=== PATIENT | female | born 1955 | race Caucasian/White ===

== ENCOUNTER 2017-01-03 10:42 | Inpatient (IN) | payer MEDICAID, OTHER ==
[~2017-01-03] VITALS: Ht 154.9 cm; Wt 43.5 kg
[2017-01-03 10:51] VITALS: BP 150/95; PULSE 84; RESP 18; TEMP 97.8; O2SAT 100
--- NOTE | 2017-01-03 10:58 | NUR ---
Patient to ER bed 01 to gown for evaluation. Side rails up. Report obtained from Nam.
--- NOTE | 2017-01-03 10:59 | NUR ---
ER at bedside examining patient.
--- NOTE | 2017-01-03 10:59 | NUR ---
Pt presents to ED with chest pressure. Reports being nauseous yesterday. Denies nausea today. Report chest pressure/pain at 8/10. Lung sounds with Coarse ronchi to ANABELLE.
--- NOTE | 2017-01-03 10:59 | NUR ---
Note undone in EDM - 01/03/17 at 1109 by BRINDA Pt presents to ED with chest pressure. Reports being nauseous yesterday. Denies nausea today. Report chest pressure/pain at 8/10. Lung sounds with Coarse ronchi to ANABELLE.
[2017-01-03] MEDS ORDERED: LEVO500T20 PO (11:10)
--- NOTE | 2017-01-03 11:12 | NUR ---
Medication reconciliation completed with information provided by patient.
--- NOTE | 2017-01-03 11:14 | NUR ---
MD notified of pain level of 8/10 verbilized understanding no order received at this time
--- NOTE | 2017-01-03 11:15 | NUR ---
Electrical Line Worker Wesley at bedside, used patient name and for identification
[2017-01-03 11:22] LABS: BASOPHILS % (AUTO) 0.3 % (0.0-2.0); EOSINOPHILS # (AUTO) 0.2 K/uL (0.0-0.4); EOSINOPHILS % (AUTO) 1.9 % (0.0-4.0); HEMATOCRIT 36.1 % (36-48); HEMOGLOBIN 12.1 g/dL (12.0-16.0); LYMPHOCYTES # (AUTO) 2.3 K/uL (1.0-5.5); LYMPHOCYTES % (AUTO) 19.4 % (20.5-51.5); MEAN CORPUSCULAR HEMOGLOBIN 32 pg (27-31); MEAN CORPUSCULAR HGB CONC 33 % (32-36); MEAN CORPUSCULAR VOLUME 94 fL (79.0-98.0); MONOCYTES # (AUTO) 1.1 K/uL (0.0-1.0); MONOCYTES % (AUTO) 9.6 % (1.7-9.3); NEUTROPHILS # (AUTO) 8.2 K/uL (1.8-7.7); NEUTROPHILS % (AUTO) 68.8 % (40.0-70.0); PLATELET COUNT (AUTO) 428 K/uL (130-430); RED BLOOD CELL COUNT(AUTO) 3.82 MIL/uL (4.2-6.2); RED CELL DISTRIBUTION WIDTH 12.4 % (9.0-15.0); WHITE BLOOD COUNT (AUTO) 11.8 K/uL (4.8-10.8)
[2017-01-03] MEDS ORDERED: IPRATROPIUM/ALBUTEROL SULFATE 3 ML AMPUL.NEB INH ONE (11:30)
[2017-01-03] MEDS ORDERED: methylPREDNISolone SOD SUCC/PF 62.5 MG/ML VIAL IVP ONE (11:30)
[2017-01-03] MEDS ORDERED: ONDANSETRON HCL 4 MG/2 ML VIAL IVP ONE (11:30)
[2017-01-03] MEDS ORDERED: MORPHINE 4 MG/ML INJ. SYRINGE IVP ONE ×2 (11:30→13:15)
[2017-01-03] MEDS ORDERED: KETOROLAC TROMETHAMINE 30 MG VIAL IVP ONE (11:30)
[2017-01-03 11:31] LABS: ALBUMIN 3.8 g/dL (3.4-4.8); CALCIUM 8.9 mg/dL (8.4-11.0); CREATININE 1.13 mg/dL (0.55-1.30); POTASSIUM 3.7 mmol/L (3.5-5.1); TOTAL BILIRUBIN 0.4 mg/dL (0.0-1.0); TOTAL PROTEIN, SERUM 7.7 g/dL (6.4-8.3)
--- NOTE | 2017-01-03 11:48 | NUR ---
Admin medication as ordered. RT at bedside admin HHN. Pt is vinicius well
[2017-01-03] MEDS ORDERED: cefTRIAXone 1 GM IVPB PREMIX 50 ML IV ONE (12:15)
--- NOTE | 2017-01-03 13:10 | NUR ---
ambulated to restroom with unassisted steady gait Urine Sample obtained and sent to lab. C/O 05/[address] Correa notified verbilized understanding
--- NOTE | 2017-01-03 13:28 | NUR ---
Medicated with Morphine IVP per Dr. Correa's order on cardiac/sao2 monitor with high alarms, bed low, brake on side rails x2 teach back fall precautions provided
--- NOTE | 2017-01-03 14:05 | NUR ---
Transfer to 129A via ACLS protocol with Kassie ROCK and Lakshmi ROCK, IV present no signs or symptoms of infiltration per Kassie
--- NOTE | 2017-01-03 14:17 | NUR ---
ADMISSION NOTE Received patient from ER via gurney. Patient admitted with diagnosis of copd. Patient is awake, alert, oriented . Patient oriented to hospital room, call light, toileting, pain management and safety-teach back done. Personal belongings checked and Belongings List documented. Call light within reach.
--- NOTE | 2017-01-03 15:00 | NUR ---
MD ROUNDS SEEN BY DR. VU. INFORMED MD THAT PT WANTS NICOTINE PATCH.
[2017-01-03] MEDS ORDERED: IPRATROPIUM/ALBUTEROL SULFATE 3 ML AMPUL.NEB INH PRN (15:15)
[2017-01-03] MEDS ORDERED: cefTRIAXone 1 GM IVPB PREMIX 50 ML IV SCH (15:15)
[2017-01-03] MEDS ORDERED: ALBUTEROL SULFATE 0.083% 2.5 MG/3 ML VIAL.NEB INH PRN (15:15)
[2017-01-03] MEDS ORDERED: IPRATROPIUM BROM 0.5 MG/2.5 ML VIAL.NEB (ATROVENT) INH PRN (15:15)
[2017-01-03] MEDS ORDERED: AZITHROMYCIN 500 MG in NS 250 ML IV SCH (15:15)
[2017-01-03] MEDS ORDERED: methylPREDNISolone SOD SUCC/PF 62.5 MG/ML VIAL IVP SCH (15:15)
[2017-01-03] MEDS ORDERED: AZITHROMYCIN 500 MG in NS 250 ML IV ONE (15:45)
[2017-01-03] MEDS ORDERED: cefTRIAXone 1 GM in D5W 50 ML IV ONE (15:45)
[2017-01-03 16:00] VITALS: BP 153/83; PULSE 72; RESP 16; TEMP 97.3; O2SAT 96
[2017-01-03 16:08] VITALS: BP 165/84; PULSE 70
--- NOTE | 2017-01-03 16:16 | NUR ---
PAGED PAGED DR. CORLEY RE: PT COMPLAINS OF PAIN ON HER CHEST. NEW ORDERS RECEIVED.
[2017-01-03] MEDS: NICOTINE 14 MG/24 HR PATCH.TD24 TD SCH (16:40)
[2017-01-03] MEDS: MORPHINE 2 MG/ML INJ. SYRINGE IVP PRN ×2 (16:47→21:54)
--- NOTE | 2017-01-03 18:44 | NUR ---
NOTES IN BED AWAKE, EATING DINNER. IV ABX STILL RUNNING AT THIS TIME. PAIN BETTER AFTER GIVING MORPHINE. NO DISTRESS NOTED. WILL ENDORSE
[2017-01-03] MEDS ORDERED: ALBUTEROL SULFATE 0.083% 2.5 MG/3 ML VIAL.NEB INH SCH (19:00)
[2017-01-03] MEDS ORDERED: IPRATROPIUM BROM 0.5 MG/2.5 ML VIAL.NEB (ATROVENT) INH SCH (19:00)
[2017-01-03] MEDS: IPRATROPIUM/ALBUTEROL SULFATE 3 ML AMPUL.NEB INH SCH ×2 (19:00→23:00)
--- NOTE | 2017-01-03 20:03 | NUR ---
Opening Note Report received from Marybel Brown day shift RN. Patient is in stable condition. However, she states that she has chest pain that is somewhat relieved by pain medication. Her cardiac work up was negative. IV is on the LAC, 20g. She states that her IV is painful. Will discontinue current IV and will insert a new one. She is on room air saturating 100%. Will continue to monitor.
[2017-01-03] MEDS: guaiFENesin ER 600 MG TAB PO SCH (21:50)
[2017-01-03] MEDS: methylPREDNISolone SOD SUCC/PF 62.5 MG/ML VIAL IVP SCH (21:54)
--- NOTE | 2017-01-03 22:00 | NUR ---
Rounds New IV site was started on the right FA 22g. Patient tolerated well. Medicated with Morphine 2mg IVP for chest pain 03/25. Will reassess.
[2017-01-04] VITALS (7 sets, daily range): BP systolic 106–162; BP diastolic 59–98; PULSE 66–100; RESP 15–18; TEMP 97.6–99.4; O2SAT 95–99
[2017-01-04] MEDS ORDERED: IPRATROPIUM BROM 0.5 MG/2.5 ML VIAL.NEB (ATROVENT) INH SCH
--- NOTE | 2017-01-04 00:05 | NUR ---
PAGED PAGED SUNI DUBOIS AT [phone] SPOKE WITH ILEANA.
--- NOTE | 2017-01-04 00:06 | NUR ---
MD Called Called Dr. Frederick. Patient is requesting a sleeping medication. Currently waiting for MD to call back.
--- NOTE | 2017-01-04 00:32 | NUR ---
Rounds Patient is in stable condition. However, seems anxious. Still waiting for Dr. Frederick to call back to order a sleeping medication. Call light is within reach. Bed is in low position. Instructed patient to use call light whenever in need of assistance.
--- NOTE | 2017-01-04 02:30 | NUR ---
Rounds Patient is currently sleeping in bed. No signs of distress noted. Call light is within reach.
[2017-01-04] MEDS: IPRATROPIUM/ALBUTEROL SULFATE 3 ML AMPUL.NEB INH SCH ×3 (03:56→11:30)
--- NOTE | 2017-01-04 04:19 | NUR ---
Rounds Patient is sleeping in bed. No signs of distress noted. Call light is within reach.
[2017-01-04] MEDS: MORPHINE 2 MG/ML INJ. SYRINGE IVP PRN ×4 (05:19→19:53)
[2017-01-04] MEDS: methylPREDNISolone SOD SUCC/PF 62.5 MG/ML VIAL IVP SCH ×3 (05:20→22:33)
--- NOTE | 2017-01-04 06:50 | NUR ---
Closing Note Patient is in stable condition. Currently sleeping in bed. Call light is within reach. IV is on the RFA 22g running at [facility]. Will give report to the oncoming nurse.
--- NOTE | 2017-01-04 08:00 | NUR ---
NOTE PT RESTING IN BED EATING HER BREAKFAST. NO SOB/RESP DISTRESS. PT HAS SOME CHEST PAIN/DISCOMFORT NOTED AT THIS TIME. IV IN RIGHT FOREARM INTACT AND INFUSING IVF'S WELL AT THIS TIME. TELE UNIT ATTACHED AND TRANSMITTING AT THIS TIME. CALL LIGHT WITHIN REACH.
[2017-01-04] MEDS: cefTRIAXone 1 GM in D5W 50 ML IV SCH (09:07)
[2017-01-04] MEDS: guaiFENesin ER 600 MG TAB PO SCH ×2 (09:07→22:33)
[2017-01-04] MEDS: NICOTINE 14 MG/24 HR PATCH.TD24 TD SCH (09:07)
[2017-01-04] MEDS: AZITHROMYCIN 500 MG in NS 250 ML IV SCH (09:07)
--- NOTE | 2017-01-04 10:00 | NUR ---
NOTE PT RESTING IN BED. NO NEEDS NOTED. PT STABLE. CALL LIGHT WITHIN REACH.
--- NOTE | 2017-01-04 11:15 | NUR ---
NOTE DR CORLEY ON THE FLOOR. PT'S QUESTIONS/CONCERNS WERE ANSWERED AT THIS TIME. PT AMBULATES TO RESTROOM WITH IV POLE AND WITH STEADY GAIT AT THIS TIME. NO SOB/RESP DISTRESS NOTED DURING AMBULATION TO RESTROOM AND BACK TO BED. CALL LIGHT WITHIN REACH.
[2017-01-04] MEDS ORDERED: IOHEXOL 350 mgI/mL, 150 ML INFUS..BTL IV ONE (11:44)
--- NOTE | 2017-01-04 11:58 | NUR ---
NOTE PT OFF THE FLOOR VIA WHEELCHAIR TO CT DEPT FOR CT OF CHEST WITH CONTRACT. IVF'S WERE SALINE LOCKED AT THIS TIME.
--- NOTE | 2017-01-04 12:15 | NUR ---
NOTE PT BACK TO FLOOR - IVF'S WERE RECONNECTED AT THIS TIME. PT ASSISTED IN SITTING UP IN BED TO EAT HER LUNCH TRAY AT THIS TIME. NO NEEDS NOTED. NO SOB/RESP DISTRESS OR SEVERE CHEST PAIN/DISCOMFORT NOTED. CALL LIGHT WITHIN REACH.
--- NOTE | 2017-01-04 14:50 | NUR ---
note pt resting in bed. no needs noted at this time. ivf's infusing well at this time. pain tolerable at this time. call light within reach.
--- NOTE | 2017-01-04 16:00 | NUR ---
NOTE PT SITTING UP IN BED, HAS VISITORS AT BEDSIDE AT THIS TIME. NO NEEDS NOTED. CALL LIGHT WITHIN REACH.
--- NOTE | 2017-01-04 18:55 | NUR ---
NOTE PT RESTING IN BED. NO SOB/RESP DISTRESS. LEFT CHEST WALL HAS SOME DISCOMFORT AT THIS TIME. PT GETS HER BREATHING TREATMENTS SCHEDULED AND REQUESTED ALL SHIFT. IV IN RIGHT HAND INTACT AND INFUSING IVF'S WELL. PT'S TELE UNIT ATTACHED AND TRANSMITTING. PT WAS CHECKED ON Q1' AND PRN ALL SHIFT FOR NEEDS AND CARE. PT WAS MAINTAINED WITH SAFETY PRECAUTIONS ALL SHIFT. CALL LIGHT WITHIN REACH. NO NEEDS NOTED AT THIS TIME.
[2017-01-04] MEDS: LevALBUTEROL HCL 1.25 MG/0.5 ML *CONC.* VIAL.NEB (XOPENEX CONC.) INH SCH (19:51)
[2017-01-04] MEDS: IPRATROPIUM BROM 0.5 MG/2.5 ML VIAL.NEB (ATROVENT) INH SCH (19:51)
--- NOTE | 2017-01-04 20:02 | NUR ---
Opening Note Report received from Shala ROCK. Patient is in stable condition. However was complaining of 8/10 headache. Medicated her accordingly. IV is on the RFA 22g currently at [facility]. Patient is saturating well at room air. Call light is within reach. Instructed her to use it whenever in need of assistance. Will continue to monitor.
--- NOTE | 2017-01-04 21:00 | NUR ---
MD Rounds Dr. Dunn assessed the patient at the bedside. Order Depacon and Benadryl IV push. Will follow up.
--- NOTE | 2017-01-04 21:46 | NUR ---
PAGE DR SCHULTE FOR ORDERS SPOKE WITH BRINDA
[2017-01-04] MEDS ORDERED: HYDROmorphone 1 MG INJ. 1 MG/ML AMPUL IVP ONE (22:00)
--- NOTE | 2017-01-04 22:00 | NUR ---
Spoke with Spoke with Dr. Todd who is teamcenter consultant for Dr. Frederick. Patient ordered Dilaudid 1mg one time dose for 05/26 headache.
--- NOTE | 2017-01-05 00:10 | NUR ---
Rounds Patient is resting in bed. Call light is within reach.
[2017-01-05] MEDS: LevALBUTEROL HCL 1.25 MG/0.5 ML *CONC.* VIAL.NEB (XOPENEX CONC.) INH SCH ×4 (00:20→20:27)
[2017-01-05] MEDS: IPRATROPIUM BROM 0.5 MG/2.5 ML VIAL.NEB (ATROVENT) INH SCH ×4 (00:21→20:27)
--- NOTE | 2017-01-05 02:20 | NUR ---
Rounds Patient is resting in bed. No complaints at the moment. Call light is within reach.
[2017-01-05 04:12] VITALS: BP 124/68; PULSE 80; RESP 18; TEMP 97.2; O2SAT 97
--- NOTE | 2017-01-05 04:20 | NUR ---
paged paged for Dr Todd, dialed . s/w Kaci.
--- NOTE | 2017-01-05 04:30 | NUR ---
Rounds Patient is currently sleeping in bed. Call light is within reach.
[2017-01-05] MEDS: methylPREDNISolone SOD SUCC/PF 62.5 MG/ML VIAL IVP SCH ×3 (05:13→22:12)
[2017-01-05] MEDS ORDERED: HYDROmorphone 1 MG INJ. 1 MG/ML AMPUL IVP ONE (05:45)
--- NOTE | 2017-01-05 05:46 | NUR ---
Spoke with Spoke with Dr. Todd regarding the patient's 06/25 headache and vomiting. MD ordered a stat CT of the head, Dilaudid 1mg one time dose, and Zofran 4mg IVP q4h. CT was called and informed of the stat order. information technology director stated that he had several ER patients to see first and mostly likely will not be able to scan the patient until after 0700. Will follow up.
[2017-01-05] MEDS: ONDANSETRON HCL 4 MG/2 ML VIAL IVP PRN ×2 (06:17→12:24)
--- NOTE | 2017-01-05 06:50 | NUR ---
Rounds Patient is resting in bed. Stated having 3/10 headache after receiving her pain medication. IV is on the RFA running NS@[facility]. CT of the head is still pending. Will give report to the oncoming nurse.
[2017-01-05 08:00] VITALS: BP 156/97; PULSE 88; RESP 18; TEMP 97.2; O2SAT 97
--- NOTE | 2017-01-05 08:00 | NUR ---
PATIENT IS A/OX4, AND IS GOING TO CT OF THE HEAD. IV ON THE LEFT FOREARM IS DISCONNECTED. ABLE TO AMBULATE WITH ASSISTANCE, NO SIGNS OF DISTRESS NOTED.
[2017-01-05] MEDS: AZITHROMYCIN 500 MG in NS 250 ML IV SCH (08:48)
[2017-01-05] MEDS: NICOTINE 14 MG/24 HR PATCH.TD24 TD SCH (08:48)
[2017-01-05] MEDS: cefTRIAXone 1 GM in D5W 50 ML IV SCH (08:48)
[2017-01-05] MEDS: guaiFENesin ER 600 MG TAB PO SCH ×2 (08:48→20:24)
--- NOTE | 2017-01-05 09:45 | NUR ---
PATIENT IS RESTING, SR ON MONITOR. NO SIGNS OF DISTRESS NOTED.
[2017-01-05] MEDS ORDERED: ACETAMINOPHEN 325 MG TABLET PO PRN (11:45)
[2017-01-05] MEDS ORDERED: HYDROcodone/ACETAMIN 10-325 MG TAB PO PRN (11:45)
--- NOTE | 2017-01-05 12:05 | NUR ---
PATIENT IS CRYING IN PAIN. DR. FRANKLIN IS NOTIFIED AND ORDERS WERE GIVEN. WILL BE CARRIED OUT.
[2017-01-05 12:10] VITALS: BP 141/64; PULSE 64; RESP 16; TEMP 97.5; O2SAT 96
[2017-01-05] MEDS: MORPHINE 2 MG/ML INJ. SYRINGE IVP PRN ×4 (12:25→22:13)
--- NOTE | 2017-01-05 14:15 | NUR ---
PATIENT IS WATCHING TV, STATES THAT SHE STILL HAS PAIN, BUT REFUSES TYLENOL AND NORCO.
[2017-01-05 16:18] VITALS: BP 129/68; PULSE 72; RESP 19; TEMP 98.6; O2SAT 98
--- NOTE | 2017-01-05 16:20 | NUR ---
PATIENT IS RESTING AT THIS TIME, NO SIGNS OF DISTRESS NOTED.
--- NOTE | 2017-01-05 18:15 | NUR ---
PATIENT IS EATING DINNER, WITH FRIENDS AND FAMILY MEMBERS AT BEDSIDE.
[2017-01-05 20:09] VITALS: BP 147/71; PULSE 69; RESP 17; TEMP 98.2; O2SAT 98
--- NOTE | 2017-01-05 20:11 | NUR ---
OPENING NOTES PATIENT IS A/OX4. NO SINGS OF DISTRESS. BREATHING IS NON LABORED. VITAL SIGNS ARE STABLE. PATIENT HAS COMPLAINTS OF PAIN. PATIENT STATED THAT SHE WANTS DILAUDID. SPOKE TO DR. FRANKLIN. STATED THAT DILAUDID WILL DECREASE THE RESPIRATORY SYSTEM. INFORMED PATIENT OF THIS. PATIENT VERBALIZED UNDERSTANDING. IV IS PATENT AND SHOWS NO SIGNS OF COMPLICATIONS. PATIENT INSTRUCTED TO CALL FOR ASSISTANCE. SAFETY MEASURES ARE IN PLACE. WILL CONTINUE TO MONITOR.
--- NOTE | 2017-01-05 20:24 | NUR ---
MORPHINE NOT GIVEN 2MG OF MORPHINE NOT GIVEN. WHEN IV SITE WAS FLUSHED, SITE BECAME INFILTRATED. WILL TRY TO INSERT NEW IV.
--- NOTE | 2017-01-05 21:46 | NUR ---
NEW IV SITE NEW IV SITE ON THE RIGHT FOREARM 22G WAS INSERTED. PATIENT TOLERATED IT WELL.
--- NOTE | 2017-01-05 22:25 | NUR ---
PAIN PATIENT HAD COMPLAINTS OF PAIN. GAVE PRN PAIN MEDICATION.
[2017-01-06] VITALS (7 sets, daily range): BP systolic 118–148; BP diastolic 60–66; PULSE 55–88; RESP 16–18; TEMP 97–98.9; O2SAT 96–97
--- NOTE | 2017-01-06 00:50 | NUR ---
ROUNDS PATIENT IS IN BED SLEEPING. NO SIGNS OF DISTRESS. BREATHING IS NON LABORED. PATIENT IS WEARING SLEEPING MASK. SAFETY MEASURES ARE IN PLACE. WILL CONTINUE TO MONITOR.
[2017-01-06] MEDS: LevALBUTEROL HCL 1.25 MG/0.5 ML *CONC.* VIAL.NEB (XOPENEX CONC.) INH SCH ×4 (01:00→19:29)
--- NOTE | 2017-01-06 01:53 | NUR ---
ROUNDS PATIENT WAS GIVEN APPLESAUCE. PATIENT IS SITTING UP IN BED ON CELL PHONE. NO SIGNS OF DISTRESS. BREATHING IS NON LABORED. SAFETY MEASURES ARE IN PLACE. WILL CONTINUE TO MONITOR.
[2017-01-06] MEDS: MORPHINE 2 MG/ML INJ. SYRINGE IVP PRN ×4 (03:49→21:10)
--- NOTE | 2017-01-06 03:50 | NUR ---
PAIN PATIENT HAS MIDEPIGASTRIC PAIN AND HEADACHE. WILL GIVE PRN PAIN MEDICATION.
[2017-01-06] MEDS: methylPREDNISolone SOD SUCC/PF 62.5 MG/ML VIAL IVP SCH ×2 (05:18→21:08)
--- NOTE | 2017-01-06 05:33 | NUR ---
ROUNDS PATIENT WALKED TO THE RESTROOM AND BACK INTO BED. GAIT IS STEADY. PATIENT IS SITTING UP IN BED WATCHING TV. NO COMPLAINTS OF PAIN. LAB IS AT BEDSIDE. CALL LIGHT IS WITHIN REACH. SAFETY MEASURES ARE IN PLACE. WILL CONTINUE TO MONITOR.
--- NOTE | 2017-01-06 05:40 | NUR ---
PATIENT WAS GIVEN SLIPPERS.
[2017-01-06] MEDS: IPRATROPIUM BROM 0.5 MG/2.5 ML VIAL.NEB (ATROVENT) INH SCH ×4 (06:00→19:29)
[2017-01-06 06:12] LABS: BASOPHILS # (AUTO) 0.2 K/uL (0.0-0.2); BASOPHILS % (AUTO) 1.3 % (0.0-2.0); EOSINOPHILS % (AUTO) 0.1 % (0.0-4.0); HEMATOCRIT 30.2 % (36-48); HEMOGLOBIN 10.3 g/dL (12.0-16.0); LYMPHOCYTES # (AUTO) 1.1 K/uL (1.0-5.5); LYMPHOCYTES % (AUTO) 6.5 % (20.5-51.5); MEAN CORPUSCULAR HEMOGLOBIN 32 pg (27-31); MEAN CORPUSCULAR HGB CONC 34 % (32-36); MEAN CORPUSCULAR VOLUME 94 fL (79.0-98.0); MONOCYTES # (AUTO) 0.6 K/uL (0.0-1.0); MONOCYTES % (AUTO) 3.9 % (1.7-9.3); NEUTROPHILS # (AUTO) 14.5 K/uL (1.8-7.7); PLATELET COUNT (AUTO) 351 K/uL (130-430); RED CELL DISTRIBUTION WIDTH 12.8 % (9.0-15.0); WHITE BLOOD COUNT (AUTO) 16.4 K/uL (4.8-10.8)
--- NOTE | 2017-01-06 06:30 | NUR ---
CLOSING NOTES PATIENT IS IN BED RESTING COMFORTABLY AND WATCHING TV. NO SIGNS OF DISTRESS. BREATHING IS NON LABORED. IV IS PATENT AND SHOWS NO SIGNS OF COMPLICATIONS. PATIENT DENIES PAIN. CALL LIGHT IS WITHIN REACH. SAFETY MEASURES ARE IN PLACE. WILL ENDORSE ALL CARE TO THE MORNING NURSE.
[2017-01-06 06:44] LABS: CALCIUM 8.4 mg/dL (8.4-11.0); CREATININE 1.11 mg/dL (0.55-1.30); POTASSIUM 4.7 mmol/L (3.5-5.1)
--- NOTE | 2017-01-06 07:44 | NUR ---
INITIAL NOTE RECEIVED PATIENT FROM RECEPTION CLERK NURSE, PATIENT IS ALERT AND ORIENTED X 4, NO SIGNS OF DISTRESS NOTED, PATIENT HAS NO COMPLAINTS OF PAIN OR DISCOMFORT, ASSESSMENT COMPLETE, PATIENT HAS IV ON RIGHT FOREARM, SALINE LOCK, NO SIGNS OF REDNESS NOTED, INSTRUCTED PATIENT TO USE CALL HAHN IF ASSISTANCE IS NEEDED, PATIENT VERBALIZED UNDERSTANDING, BED LEFT IN LOWEST POSITION, BED ALARM ON, CALL HAHN WITHIN PATIENT'S REACH, TWO SIDE RAILS UP FOR PATIENT'S SAFETY, FALL PRECAUTIONS IN PLACE, WILL CONTINUE TO MONITOR PATIENT.
[2017-01-06 08:57] LABS: NEUTROPHILS % (AUTO) 88.2 % (40.0-70.0)
--- NOTE | 2017-01-06 09:00 | NUR ---
MEDICATIONS MORNING MEDICATIONS GIVEN TO PATIENT, EDUCATED PATIENT ON POTENTIAL SIDE EFFECTS OF MEDICATIONS, PATIENT VERBALIZED UNDERSTANDING, NICOTINE PATCHED PLACED ON PATIENT'S LEFT UPPER ARM, , NO OTHER NEEDS AT THIS TIME, WILL CONTINUE TO MONITOR, CALL HAHN LEFT IN PATIENT'S HAND, FALL PRECAUTIONS IN PLACE.
[2017-01-06] MEDS: guaiFENesin ER 600 MG TAB PO SCH ×2 (09:02→21:09)
[2017-01-06] MEDS: NICOTINE 14 MG/24 HR PATCH.TD24 TD SCH (09:02)
[2017-01-06] MEDS: cefTRIAXone 1 GM in D5W 50 ML IV SCH (09:03)
--- NOTE | 2017-01-06 10:19 | NUR ---
RN ROUNDS PATIENT IS CURRENTLY RESTING IN BED, NO SIGNS OF DISTRESS NOTED, PATIENT HAS NO COMPLAINTS OF PAIN AT THIS TIME, WILL CONTINUE TO MONITOR PATIENT.
[2017-01-06] MEDS: ONDANSETRON HCL 4 MG/2 ML VIAL IVP PRN (11:32)
--- NOTE | 2017-01-06 11:58 | NUR ---
NEURO CONSULT Spoke with Madelin regarding request for consultation with Dr. Dunn ([phone]) for reason:
--- NOTE | 2017-01-06 12:18 | NUR ---
RN ROUNDS PATIENT IS CURRENTLY LYING IN BED WATCHING TV, NO SIGNS OF DISTRESS NOTED, NO OTHER NEEDS AT THIS TIME WILL CONTINUE TO MONITOR
--- NOTE | 2017-01-06 14:43 | NUR ---
RN ROUNDS PATIENT IS CURRENTLY RESTING IN BED,PATIENT HAS NO COMPLAINTS OF PAIN OR DISCOMFORT AT THIS TIME, WILL CONTINUE TO MONITOR
--- NOTE | 2017-01-06 17:00 | NUR ---
rn rounds patient is resting in bed, no signs of distress noted, patient states that her pain is improving, no other needs at this time, will continue to monitor.
--- NOTE | 2017-01-06 18:32 | NUR ---
CLOSING NOTE PATIENT IS CURRENTLY RESTING IN BED, FRIENDS IS CURRENTLY AT BEDSIDE, PATIENT HAS NO COMPLAINTS OF PAIN OR DISCOMFORT, NO SIGNS OF DISTRESS, ALL NEEDS MET, WILL ENDORSE PATIENT TO TRAINING MANAGER NURSE, WILL INFORM NURSE ABOUT PATIENT'S MRI OF BRAIN THAT IS SCHEDULED FOR TOMORROW, BED LEFT IN LOWEST POSITION, CALL HAHN WITHIN REACH, TWO SIDE RAILS UP, FALL PRECAUTIONS IN PLACE.
--- NOTE | 2017-01-06 20:06 | NUR ---
opening Note Report received from Aaron ROCK. Patient is in stable condition. Currently sitting in bed. Friend is at the bedside. IV is on the RFA 22g currently saline locked. Spoke with Dr. Salcedo. The patient is requesting Dilaudid for headache instead of Morphine. stated that Dilaudid is contraindicated for d/t the brain tumor. Will explain to the patient and will continue to monitor.
[2017-01-06] MEDS ORDERED: methylPREDNISolone SOD SUCC/PF 62.5 MG/ML VIAL IVP SCH (21:00)
--- NOTE | 2017-01-06 22:30 | NUR ---
IV inserted Old IV site was leaking. Started new IV site 24g on the left thumb using aseptic technique.
[2017-01-06] MEDS ORDERED: VALPROATE SODIUM 500 MG in D5W 100 ML IV ONE (23:00)
[2017-01-06] MEDS ORDERED: DIPHENHYDRAMINE INJ 50 MG/ML VIAL IVP ONE (23:15)
[2017-01-06] MEDS ORDERED: VALPROATE SODIUM 100 MG/ML VIAL (DEPACON) IV ONE (23:28)
--- NOTE | 2017-01-07 00:10 | NUR ---
Rounds Patient is currently resting in bed. Call light is within. Bed is low position.
[2017-01-07 00:23] VITALS: BP 138/70; PULSE 64; RESP 18; TEMP 97.5; O2SAT 96
[2017-01-07] MEDS: LevALBUTEROL HCL 1.25 MG/0.5 ML *CONC.* VIAL.NEB (XOPENEX CONC.) INH SCH ×4 (01:15→21:01)
[2017-01-07] MEDS: IPRATROPIUM BROM 0.5 MG/2.5 ML VIAL.NEB (ATROVENT) INH SCH ×4 (01:15→21:00)
--- NOTE | 2017-01-07 02:20 | NUR ---
Rounds Patient is resting in bed. Call light is within reach.
[2017-01-07] MEDS: MORPHINE 2 MG/ML INJ. SYRINGE IVP PRN ×4 (03:28→20:51)
[2017-01-07 03:30] VITALS: BP 127/51; PULSE 65; RESP 18; TEMP 96.6; O2SAT 98
--- NOTE | 2017-01-07 04:00 | NUR ---
Rounds Patient is resting in bed. Call light is within reach.
[2017-01-07] MEDS ORDERED: VALPROATE SODIUM 100 MG/ML VIAL (DEPACON) IV ONE (05:59)
[2017-01-07] MEDS ORDERED: VALPROATE SODIUM 500 MG in D5W 100 ML IV SCH (06:00)
--- NOTE | 2017-01-07 06:30 | NUR ---
Closing Note Patient is resting in bed. Currently getting Depacon IVPB. MRI of the head is due for today. Will give report to the oncoming nurse.
--- NOTE | 2017-01-07 08:01 | NUR ---
INITIAL NOTE PT AWAKE, ALERT AND ORIENTED X4, COMPLAINS OF HEADACHE, PER REPORT AND PATIENT MD IS AWARE AND STATED HE WILL NOT INCREASE PAIN MEDICATION DUE TO PREVIOUS HX OF PATIENT WITH HER CONDITION AND RISK OF DECREASED RESPIRATIONS, PATIENT AWARE THAT RN WILL DO WHAT IS WITHIN SCOPE OF PRACTICE TO ALLEVIATE PAIN AND STRESS, PT VERBALIZED UNDERSTANDING. IV TO LEFT THUMB INTACT AND INFUSING DEPACON AT THIS TIME, NO S/S OF INFILTRATION NOTED, PT REORIENTED TO USE OF CALL LIGHT AND IT IS PLACED WITHIN REACH, SAFETY MEASURES IN PLACE, BED IN LOW POSITION AND LOCKED, SIDE RAILS UP X2, JUST FINISHED BREATHING TREATMENT, WILL CONTINUE TO MONITOR.
[2017-01-07 08:10] VITALS: BP 134/53; PULSE 58; RESP 17; TEMP 97.4; O2SAT 100
[2017-01-07] MEDS: guaiFENesin ER 600 MG TAB PO SCH ×2 (08:33→20:50)
[2017-01-07] MEDS: cefTRIAXone 1 GM in D5W 50 ML IV SCH (08:33)
[2017-01-07] MEDS: ONDANSETRON HCL 4 MG/2 ML VIAL IVP PRN ×3 (08:33→20:50)
[2017-01-07] MEDS: ASPIRIN 81 MG TAB.CHEW PO SCH (08:33)
[2017-01-07] MEDS: methylPREDNISolone SOD SUCC/PF 62.5 MG/ML VIAL IVP SCH ×2 (08:33→20:50)
[2017-01-07] MEDS: NICOTINE 14 MG/24 HR PATCH.TD24 TD SCH (08:34)
--- NOTE | 2017-01-07 09:15 | NUR ---
PT PICKED UP FOR MRI WITHOUT CONTRAST VIA WHEELCHAIR, STABLE, NO S/S OF DISTRESS, IV SL, WILL FOLLOW UP
--- NOTE | 2017-01-07 10:15 | NUR ---
PT RETURNED FROM PROCEDURE, DR VU AT BEDSIDE. NO NEW ORDERS RECEIVED AT THIS TIME. PT STABLE, CALL LIGHT WITHIN REACH,SAFETY MEASURES IN PLACE, WILL CONTINUE TO MONITOR
--- NOTE | 2017-01-07 10:45 | NUR ---
DR CORLEY AT BEDSIDE, SPOKE WITH PATIENT REGARDING RESULTS TO MRI, PT VERBALIZED UNDERSTANDING. MADE MD AWARE OF PT CRYING OVER NIGHT ABOUT HEADACHE PER REPORT AND MORNING ROUNDS, SINCE CHANGE OF SHIFT PT HAS NOT COMPLAINED OF INTOLERABLE HEADACHE, NEW ORDER RECEIVED FOR PSYCH CONSULT POSSIBLE DEPRESSION.
--- NOTE | 2017-01-07 11:56 | NUR ---
CONSULT CALLED CONSULTATION FOR DEPRESSION. SPOKE WITH WILLIE. FAXED OVER FACE SHEET
[2017-01-07 12:04] VITALS: BP 149/74; PULSE 69; RESP 16; TEMP 98.4; O2SAT 98
--- NOTE | 2017-01-07 12:31 | NUR ---
ROUNDS PT AWAKE, NO S/S OF DISTRESS, PT DENIES PAIN AT THIS TIME, DIETITIAN AT BEDSIDE, PT STATES SHE HAS NO NEEDS AT THIS TIME, SAFETY MEASURES IN PLACE, CALL LIGHT WITHIN EACH, WILL CONTINUE TO MONITOR.
--- NOTE | 2017-01-07 13:00 | NUR ---
PHARMACY CALLED FOR IV MEDICATION DEPACON PER PHARMACIST, THEY ARE MIXING THE MEDICATIONS AND WILL SEND TO FLOOR SOON. WILL FOLLOW UP
[2017-01-07 13:46] VITALS: Ht 154.9 cm; Wt 43.5 kg
[2017-01-07] MEDS: VALPROATE SODIUM 500 MG in D5W 100 ML IV SCH ×3 (14:00→23:05)
--- NOTE | 2017-01-07 14:30 | NUR ---
FOLLOWED UP ON DEPACON IV FLUID, PER PHARMACISTS ORDER WAS WRITTEN WRONG AND HE CANNOT SEE ORDER BECAUSE ORDER WAS WRITTEN TO BE MIXED BY NURSE BUT SHOULD BE MIXED BY PHARMACISTS PER PHARMACIST HE WILL MIX AND SEND SOON POSSIBLE
--- NOTE | 2017-01-07 16:10 | NUR ---
PHARMACIST DELIVERED DEPACON AND MEDICATION INFUSING AT THIS TIME, IV SITE PATENT, NO S/S OF INFILTRATION, WILL CONTINUE TO MONITOR
[2017-01-07 16:21] VITALS: BP 138/74; PULSE 74; RESP 17; TEMP 97; O2SAT 97
--- NOTE | 2017-01-07 18:15 | NUR ---
ROUNDS PT RESTING, EASY TO AROUSE, NO S/S OF DISTRESS OR COMPLAINT OF PAIN, PT STATES SHE HAS NO NEEDS AT THIS TIME, SAFETY MEASURES IN PLACE, CALL LIGHT WITHIN REACH, WILL CONTINUE TO MONITOR
--- NOTE | 2017-01-07 19:14 | NUR ---
OPENING NOTES REPORT GIVEN AT BEDSIDE BY DAY SHIFT NURSE. PATIENT IS ALERT AND ORIENTED X4. NO S/S OF ACUTE DISTRESS NOTED. IV PATENT AND RUNNING TKO. BED IN LOWEST POSITION, CALL LIGHT WITHIN REACH. WILL CONTINUE TO MONITOR.
--- NOTE | 2017-01-07 19:26 | NUR ---
CLOSING NOTE PT AWAKE, ALERT AND ORIENTED X4, NO S/S OF DISTRESS OR COMPLAINT OF PAIN, PT DID NOT COMPLAIN OF INTENSE HEADACHE AND NO EPISODES OF INCONSOLABLE CRYING DURING SHIFT. IV TO LEFT THUMB INFUSING FLUIDS TKO, SITE PATENT AND INTACT, NO S/S OF INFILTRATION NOTED, ALL NEEDS ATTENDED TO THROUGHOUT SHIFT, SAFETY MEASURES IN PLACE, BED IN LOW POSITION AND LOCKED, CALL LIGHT WITHIN REACH, REPORT GIVEN AT BEDSIDE TO NIEVES ROCK.
[2017-01-07 19:44] VITALS: BP 151/80; PULSE 70; RESP 16; TEMP 98.1; O2SAT 98
[2017-01-07] MEDS ORDERED: DIPHENHYDRAMINE INJ 50 MG/ML VIAL IVP SCH ×2 (21:00)
--- NOTE | 2017-01-07 23:09 | NUR ---
ROUNDS PATIENT IS SITTING UP IN BED WATCHING TELEVISION IN GOOD SPIRITS. NO S/S OF ACUTE DISTRESS NOTED. FLUIDS INFUSING, IV SHOW NO SIGNS OF INFILTRATION. BED IN LOWEST POSITION, CALL LIGHT WITHIN REACH. WILL CONTINUE TO MONITOR.
[2017-01-08] VITALS: BP 151/82; PULSE 66; RESP 18; TEMP 98.5; O2SAT 98
[2017-01-08] MEDS: LevALBUTEROL HCL 1.25 MG/0.5 ML *CONC.* VIAL.NEB (XOPENEX CONC.) INH SCH ×4 (00:42→19:52)
[2017-01-08] MEDS: IPRATROPIUM BROM 0.5 MG/2.5 ML VIAL.NEB (ATROVENT) INH SCH ×4 (00:42→19:52)
[2017-01-08] MEDS: MORPHINE 2 MG/ML INJ. SYRINGE IVP PRN ×5 (00:57→20:28)
--- NOTE | 2017-01-08 01:01 | NUR ---
PAIN PATIENT COMPLAINED OF PAIN 7/10, GENERALIZED. PATIENT MEDICATED PER ORDERS. WILL REASSESS SHORTLY. PATIENT IN SEMI-GARCÍA'S, WATCHING TELEVISION AND TALKATIVE WITH NO S/S OF ACUTE DISTRESS NOTED. BED IN LOWEST POSITION, CALL LIGHT WITHIN REACH.
--- NOTE | 2017-01-08 02:04 | NUR ---
ROUNDS PATIENT SITTING UP IN BED SLEEPING. NO S/S OF ACUTE DISTRESS NOTED. VISIBLE RISE AND FALL OF CHEST WITH AUDIBLE SNORING. RESPIRATIONS EVEN AND UNLABORED. BED IN LOWEST POSITION, CALL LIGHT WITHIN REACH. WILL CONTINUE TO MONITOR.
--- NOTE | 2017-01-08 03:49 | NUR ---
ROUNDS PATIENT SLEEPING WITH VISIBLE RISE AND FALL OF CHEST NOTED. NO S/S OF DISTRESS. BED IN LOWEST POSITION WILL CONTINUE TO MONITOR. CALL LIGHT IN LEFT HAND.
[2017-01-08 04:00] VITALS: BP 131/58; PULSE 52; RESP 16; TEMP 98.6; O2SAT 97
--- NOTE | 2017-01-08 05:44 | NUR ---
PAIN PATIENT CALLED COMPLAINING OF PAIN 04/25. WILL MEDICATE PER ORDERS.
--- NOTE | 2017-01-08 05:59 | NUR ---
CRYING PATIENT IS VISIBLY DISTRESSED, CRYING LOUDLY. PATIENT STATES SHE IS IN PAIN 8/10. WILL ENDORSE TO DAY SHIFT NURSE.
[2017-01-08] MEDS: VALPROATE SODIUM 500 MG in D5W 100 ML IV SCH ×3 (06:31→21:13)
--- NOTE | 2017-01-08 07:10 | NUR ---
CLOSING NOTES PATIENT IS RESTING COMFORTABLY. NO LONGER CRYING. NO S/S OF ACUTE DISTRESS NOTED. PATIENT STATES PAIN HAS IMPROVED. WILL ENDORSE CARE TO DAYSHIFT NURSE. FALL PRECAUTIONS IN PLACE, CALL LIGHT WITHIN REACH.
[2017-01-08 08:00] VITALS: BP 154/82; PULSE 75; RESP 17; TEMP 97; O2SAT 100
--- NOTE | 2017-01-08 08:00 | NUR ---
INITIAL NOTE PT LAYING IN BED, MELANCHOLIC, NOT CRYING, NO S/S OF DISTRESS OR COMPLAINT OF HAMM AT THE MOMENT, IV TO LEFT THUMB TKO, PATENT AND INTACT, NO S/S OF INFILTRATION NOTED, VSS, PLAN OF CARE DISCUSSED WITH PATIENT, PT VERBALIZED UNDERSTANDING, PT REORIENTED TO USE OF CALL LIGHT AND IT IS PLACED WITHIN REACH, SAFETY MEASURES IN PLACE, BED IN LOW POSITION AND LOCKED, WILL FOLLOW UP
[2017-01-08] MEDS: cefTRIAXone 1 GM in D5W 50 ML IV SCH (08:53)
[2017-01-08] MEDS: guaiFENesin ER 600 MG TAB PO SCH ×2 (08:54→20:26)
[2017-01-08] MEDS: methylPREDNISolone SOD SUCC/PF 62.5 MG/ML VIAL IVP SCH ×2 (08:54→20:24)
[2017-01-08] MEDS: NICOTINE 14 MG/24 HR PATCH.TD24 TD SCH (08:54)
[2017-01-08] MEDS: ASPIRIN 81 MG TAB.CHEW PO SCH (08:54)
--- NOTE | 2017-01-08 09:30 | NUR ---
Nutrition Update Arley Scale 17 noted. Pt admitted for COPD. Diet: mechanical soft BMI: 18.1 kg/m2 RD to follow per nutrition care standards.
--- NOTE | 2017-01-08 09:36 | NUR ---
MD DAVIES SPOKE WITH HOSP. SPECIALIST TO PAGE DR VELAZQUEZ PER SWHETA GAMBOA.
--- NOTE | 2017-01-08 10:00 | NUR ---
DR BARNEY BEAVERS MD AWARE OF PATIENTS INCONSOLABLE CRYING AND COMPLAINT OF HEADACHE, DR MEHTA STILL PENDING CONSULT, WILL FOLLOW UP,
--- NOTE | 2017-01-08 10:00 | NUR ---
DR CORLEY MAKING ROUNDS AWARE OF PATIENTS COMPLAINT OF PAIN, PAIN MEDICATION DUE WILL ADMINISTER AND FOLLOW UP
[2017-01-08 12:31] VITALS: BP 137/96; PULSE 81; RESP 20; TEMP 97.9; O2SAT 97
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
--- NOTE | 2017-01-08 13:40 | NUR ---
DR VU MAKING ROUNDS, NEW ORDERS RECEIVED, PT MADE AWARE OF PLAN OF CARE, WILL FOLLOW UP
[2017-01-08 14:55] LABS: ALBUMIN 3.3 g/dL (3.4-4.8); CALCIUM 8.4 mg/dL (8.4-11.0); CREATININE 1.53 mg/dL (0.55-1.30); POTASSIUM 4.6 mmol/L (3.5-5.1); TOTAL BILIRUBIN 0.2 mg/dL (0.0-1.0); TOTAL PROTEIN, SERUM 6.9 g/dL (6.4-8.3)
--- NOTE | 2017-01-08 16:00 | NUR ---
ROUNDS PT SITTING IN BED, FAMILY MEMBER AT BEDSIDE, APPEARS TO BE IN BETTER SPIRITS, NO S/S OF DISTRESS AT THIS TIME, PT STATES SHE HAS NO NEEDS AT THIS TIME, SAFETY MEASURES IN PLACE, CALL LIGHT WITHIN REACH, WILL CONTINUE TO MONITOR
[2017-01-08 16:13] VITALS: BP 123/89; PULSE 81; RESP 19; TEMP 98.6; O2SAT 95
--- NOTE | 2017-01-08 18:00 | NUR ---
US TECH IN ROOM FOR US OF ABDOMEN PT NPO SINCE LUNCH
--- NOTE | 2017-01-08 18:15 | NUR ---
IV RE-INSERTION: Complaining of pain to IV site. Restarted on LFA 22G. Successful after 1 attempts. Resumed current IVF of NS and regulated @ TKO. Will observe for any signs of infiltration.
--- NOTE | 2017-01-08 18:33 | NUR ---
CLOSING NOTE PT SITTING IN BED, EATING DINNER, SON AT BEDSIDE, NO S/S OF DISTRESS OR COMPLAINT OF PAIN AT THIS TIME, PER PT HEADACHE IS THERE BUT TOLERABLE AT THIS TIME, ALL NEEDS ATTENDED TO DURING SHIFT, SAFETY MEASURES MAINTAINED, CALL LIGHT WITHIN REACH, BED IN LOW POSITION AND LOCKED, WILL GIVE REPORT TO FOLLOWING SHIFT.
[2017-01-08] MEDS: ACETYLCYSTEINE 20% 4 ML VIAL (RT) INH SCH (19:57)
[2017-01-08 20:00] VITALS: PULSE 80; RESP 20; TEMP 99.1; O2SAT 97
--- NOTE | 2017-01-08 20:00 | NUR ---
AWAKE, ALERT, ORIENTED X4. IN NO APPARENT DISTRESS. VSS. MORPHINE 2 MG IVP GIVEN FOR C/O HEADACHE. ON ROOM AIR. BREATH SOUNDS CLEAR. BOWEL SOUNDS (+). SKIN W/D. COLOR SATISFACTORY. HOB UP TO COMFORT. SIDE RAILS UP X2. CALL LIGHTS WITHIN REACH.
--- NOTE | 2017-01-08 21:34 | NUR ---
CONSULT CALLED Reason for consultation: home situation Was consult called: yes Person who was notified: Ragini Press Feeder Broomcorn Physician: Jammie Press Feeder Broomcorn
--- NOTE | 2017-01-08 22:00 | NUR ---
HAD VISITORS EARLIER. MALENA.
[2017-01-09] MEDS: LevALBUTEROL HCL 1.25 MG/0.5 ML *CONC.* VIAL.NEB (XOPENEX CONC.) INH SCH ×4 (01:00→20:34)
--- NOTE | 2017-01-09 01:00 | NUR ---
MORPHINE 2 MG IVP GIVEN AGAIN PER PT REQUEST FOR COMPLAINT OF HEADACHE.
[2017-01-09] MEDS: MORPHINE 2 MG/ML INJ. SYRINGE IVP PRN ×5 (01:07→20:34)
[2017-01-09 02:03] VITALS: BP 133/83; PULSE 77; RESP 18; TEMP 97.5; O2SAT 97
[2017-01-09 03:49] VITALS: BP 139/58; PULSE 51; RESP 17; TEMP 97.2; O2SAT 97
--- NOTE | 2017-01-09 04:00 | NUR ---
SLEPT INTERMITTENTLY. ASKED FOR ANALGESIA, REFUSED VICODIN, STATES SHE IS ALLERGIC TO IT. TOO EARLY FOR MORPHINE, WILL WAIT TILL TIME. ATE SOME CRACKERS.
--- NOTE | 2017-01-09 05:40 | NUR ---
TEARFUL. COMPLAINING OF PAIN IN HEAD AND CHEST. MORPHINE 2 MG IVP GIVEN PER PT REQUEST.
[2017-01-09 08:00] VITALS: BP 109/50; PULSE 67; RESP 14; TEMP 97.3; O2SAT 97
--- NOTE | 2017-01-09 08:00 | NUR ---
AM MEDS PT IN BED AWAKE, TEARFUL. STILL COMPLAINING OF HEADACHE, WILL GIVE TYLENOL. AMBULATE TO THE BATHROOM WITH STEADY GAIT. IVL. ON ROOM AIR. DENIES ANY SHORTNESS OF BREATH. ON BREATHING TREATMENT. SAFETY PRECAUTION OBSERVED. CALL LIGHT IN REACH. WILL MONITOR.
[2017-01-09] MEDS: ACETYLCYSTEINE 20% 4 ML VIAL (RT) INH SCH (08:18)
[2017-01-09] MEDS: IPRATROPIUM BROM 0.5 MG/2.5 ML VIAL.NEB (ATROVENT) INH SCH ×4 (08:18→20:34)
[2017-01-09 08:20] VITALS: BP 109/50; PULSE 73
[2017-01-09] MEDS: methylPREDNISolone SOD SUCC/PF 62.5 MG/ML VIAL IVP SCH (08:54)
[2017-01-09] MEDS: cefTRIAXone 1 GM in D5W 50 ML IV SCH (08:55)
[2017-01-09] MEDS: guaiFENesin ER 600 MG TAB PO SCH ×2 (08:55→20:32)
[2017-01-09] MEDS: NICOTINE 14 MG/24 HR PATCH.TD24 TD SCH (08:55)
[2017-01-09] MEDS: ASPIRIN 81 MG TAB.CHEW PO SCH (08:55)
--- NOTE | 2017-01-09 10:00 | NUR ---
ROUNDS IN BED, RESTING. NO DISTRESS NOTED.
[2017-01-09 10:48] LABS: CALCIUM 8.7 mg/dL (8.4-11.0); CREATININE 0.97 mg/dL (0.55-1.30); POTASSIUM 4.6 mmol/L (3.5-5.1)
--- NOTE | 2017-01-09 11:45 | NUR ---
MD CALLED SPOKE TO DR. CORLEY AND MADE AWARE THAT PT IS CRYING AND STILL COMPLAIN OF HEADACHE AND GENERALIZED BODY ACHES. NEW ORDERS FOR PAIN MANAGEMENT CONSULTS ORDERED.
[2017-01-09 12:00] VITALS: BP 157/71; PULSE 68; RESP 20; TEMP 98.9; O2SAT 97
--- NOTE | 2017-01-09 12:09 | NUR ---
Pain Consult: Attempted to reach office of Margot Basurto No one is answering calls and voicemail box is full. Will attempt later.
--- NOTE | 2017-01-09 13:00 | NUR ---
FOLLOW UP CONSULT ASK MDM DEVELOPER TO CALL FOR FOLLOW UP CONSULT WITH DR. MEHTA.
--- NOTE | 2017-01-09 13:36 | NUR ---
Pain Consult: for Dr. Ferrera, regarding generalized pain/headache, ordered by Dr. Frederick, spoke with Aria.
--- NOTE | 2017-01-09 15:58 | NUR ---
PAIN COMPLAIN OF GENERALIZED PAIN AND HEADACHE. PT WANTS MORPHINE. MORPHINE GIVEN AT THIS TIME. PT MADE AWARE THAT DR. CORLEY ORDERED A PAIN MANAGEMENT CONSULT. PT VERBALIZE UNDERSTANDING.
[2017-01-09 16:00] VITALS: BP 152/74; PULSE 75; RESP 16; TEMP 98.2; O2SAT 98
--- NOTE | 2017-01-09 18:04 | NUR ---
MD ROUNDS SEEN BY. DR. MEHTA.
--- NOTE | 2017-01-09 18:23 | NUR ---
NOTES IN BED, EATING DINNER. FEELS BETTER AT THIS TIME. NO DISTRESS NOTED. COMPLAINS OF ON AND OFF HEADACHE. ALL NEEDS MEET. WILL ENDORSE
--- NOTE | 2017-01-09 20:00 | NUR ---
ROUNDS PATIENT RESTING COMFORTABLY IN BED, VITALS STABLE, DENIES ANY PAIN AT THIS TIME. ASSESSMENT DONE AND DOCUMENTED. SEE FLOWSHEET. NEEDS ATTENDED TO. SAFETY MEASURES IN PLACED. CALL LIGHT PLACED WITHIN REACH.
[2017-01-09] MEDS: CITALOPRAM HYDROBROMIDE 20 MG TABLET PO SCH (20:32)
[2017-01-09] MEDS: PREDNISONE 20 MG TABLET PO SCH (20:32)
--- NOTE | 2017-01-09 21:15 | NUR ---
MEDICATION DUE MEDICATIONS GIVEN SCHEDULED, TOLERATED WELL. WILL CONTINUE TO MONITOR.
[2017-01-10] MEDS: MORPHINE 2 MG/ML INJ. SYRINGE IVP PRN ×3 (00:28→15:43)
--- NOTE | 2017-01-10 00:56 | NUR ---
PATIENT RESTING: Patient resting quietly. No acute distress noted. Vital signs within normal range.
[2017-01-10 00:58] VITALS: BP 163/81; PULSE 65; RESP 16; TEMP 98.7; O2SAT 96
[2017-01-10] MEDS: LevALBUTEROL HCL 1.25 MG/0.5 ML *CONC.* VIAL.NEB (XOPENEX CONC.) INH SCH ×4 (01:00→20:19)
[2017-01-10] MEDS: ACETYLCYSTEINE 20% 4 ML VIAL (RT) INH SCH ×3 (02:25→21:00)
--- NOTE | 2017-01-10 04:00 | NUR ---
PATIENT RESTING: Patient resting quietly. No acute distress noted. Vital signs within normal range.
[2017-01-10 04:08] VITALS: BP 126/78; PULSE 66; RESP 16; TEMP 98.8; O2SAT 94
--- NOTE | 2017-01-10 06:50 | NUR ---
CLOSING NOTES PATIENT AWAKE, WATCHING TV, ALL NEEDS ATTENDED TO, NO MORE PAIN AT THIS TIME. SAFETY MEASURES MAINTAINED, CALL LIGHT PLACED WITHIN REACH.
[2017-01-10] MEDS: IPRATROPIUM BROM 0.5 MG/2.5 ML VIAL.NEB (ATROVENT) INH SCH ×4 (07:56→20:18)
--- NOTE | 2017-01-10 08:00 | NUR ---
initial notes rec patient awake alert and c/o pain. ivl on the l ac intact. no infiltration noted. c/o severe headache and will be seen by dr zuniga. resp easy and unlabored with and no sob noted. fall/ safety issue reinforced. call light withn reached and knows when to call for assistance.
[2017-01-10] MEDS ORDERED: MORPHINE SULFATE 15 MG TABLET.SA PO PRN (08:30)
[2017-01-10 08:38] VITALS: BP 157/77; PULSE 82; RESP 18; TEMP 97.4; O2SAT 97
[2017-01-10] MEDS: guaiFENesin ER 600 MG TAB PO SCH ×2 (08:54→21:31)
[2017-01-10] MEDS: ASPIRIN 81 MG TAB.CHEW PO SCH (08:55)
[2017-01-10] MEDS: NICOTINE 14 MG/24 HR PATCH.TD24 TD SCH (08:55)
[2017-01-10] MEDS: PREDNISONE 20 MG TABLET PO SCH ×2 (08:55→21:31)
[2017-01-10] MEDS ORDERED: cefTRIAXone 1 GM in D5W 50 ML IV ONE (09:45)
--- NOTE | 2017-01-10 10:00 | NUR ---
rounds sleeping when rounds made . call light within reached.
[2017-01-10] MEDS: MORPHINE SULFATE 30 MG Immediate Release TABLET PO PRN ×4 (11:52→22:15)
[2017-01-10 12:03] VITALS: BP 168/89; PULSE 70; RESP 17; TEMP 97.2; O2SAT 98
--- NOTE | 2017-01-10 14:00 | NUR ---
rounds sleeps at intervals . call light within reached. resting comfortably.
--- NOTE | 2017-01-10 15:50 | NUR ---
rounds pain med was given as requested for pain. no sob noted.
[2017-01-10 16:51] VITALS: BP 142/82; PULSE 76; RESP 16; TEMP 98; O2SAT 98
--- NOTE | 2017-01-10 18:30 | NUR ---
closing notes resting comfortably. denies pain. call light within reached. no sob noted.
[2017-01-10 20:00] VITALS: BP 156/79; PULSE 71; RESP 18; TEMP 98.4; O2SAT 99
--- NOTE | 2017-01-10 20:00 | NUR ---
ROUNDS PATIENT RESTING COMFORTABLY IN BED AT THIS TIME, NOT IN DISTRESS, VITALS STABLE. DENIES ANY PAIN AND DISCOMFORT AT THIS TIME. ASSESSMENT DONE AND DOCUMENTED. SEE FLOWSHEET. NEEDS ATTENDED TO. SAFETY AND FALL PRECAUTION MEASURES IN PLACED. CALL LIGHT PLACED WITHIN REACH.
--- NOTE | 2017-01-10 21:25 | NUR ---
MEDICATION DUE MEDICATIONS GIVEN ORDERED, TOLERATED WELL. WILL CONTINUE TO MONITOR.
[2017-01-10] MEDS: CITALOPRAM HYDROBROMIDE 20 MG TABLET PO SCH (21:31)
--- NOTE | 2017-01-11 00:15 | NUR ---
PATIENT RESTING: Patient resting quietly. No acute distress noted. Vital signs within normal range.
[2017-01-11 00:21] VITALS: BP 162/91; PULSE 64; RESP 17; TEMP 98.1; O2SAT 96
[2017-01-11] MEDS: LevALBUTEROL HCL 1.25 MG/0.5 ML *CONC.* VIAL.NEB (XOPENEX CONC.) INH SCH ×4 (01:00→20:12)
--- NOTE | 2017-01-11 02:05 | NUR ---
ROUNDS PATIENT ASLEEP AT THIS TIME, NO SOB NOTED, WILL CONTINUE TO MONITOR.
[2017-01-11] MEDS: MORPHINE 2 MG/ML INJ. SYRINGE IVP PRN ×2 (03:08→22:37)
[2017-01-11 04:00] VITALS: BP 158/86; PULSE 69; RESP 18; TEMP 97.8; O2SAT 98
--- NOTE | 2017-01-11 04:36 | NUR ---
PATIENT RESTING: Patient resting quietly. No acute distress noted. Vital signs within normal range.
[2017-01-11] MEDS: MORPHINE SULFATE 30 MG Immediate Release TABLET PO PRN ×4 (05:09→20:55)
--- NOTE | 2017-01-11 06:49 | NUR ---
CLOSING NOTES PATIENT AWAKE, VITALS STABLE, NO MORE PAIN AT THIS TIME. ALL NEEDS ATTENDED TO. CALL LIGHT PLACED WITHIN REACH.
[2017-01-11 06:55] LABS: CALCIUM 8.1 mg/dL (8.4-11.0); CREATININE 0.87 mg/dL (0.55-1.30); POTASSIUM 4.9 mmol/L (3.5-5.1)
[2017-01-11 07:02] LABS: BASOPHILS # (AUTO) 0.1 K/uL (0.0-0.2); BASOPHILS % (AUTO) 0.5 % (0.0-2.0); EOSINOPHILS % (AUTO) 0.2 % (0.0-4.0); HEMATOCRIT 35.1 % (36-48); HEMOGLOBIN 11.6 g/dL (12.0-16.0); LYMPHOCYTES # (AUTO) 1.3 K/uL (1.0-5.5); LYMPHOCYTES % (AUTO) 8.7 % (20.5-51.5); MEAN CORPUSCULAR HEMOGLOBIN 32 pg (27-31); MEAN CORPUSCULAR HGB CONC 33 % (32-36); MEAN CORPUSCULAR VOLUME 96 fL (79.0-98.0); MONOCYTES % (AUTO) 6.9 % (1.7-9.3); NEUTROPHILS # (AUTO) 12.2 K/uL (1.8-7.7); NEUTROPHILS % (AUTO) 83.7 % (40.0-70.0); PLATELET COUNT (AUTO) 323 K/uL (130-430); RED BLOOD CELL COUNT(AUTO) 3.65 MIL/uL (4.2-6.2); RED CELL DISTRIBUTION WIDTH 12.9 % (9.0-15.0); WHITE BLOOD COUNT (AUTO) 14.6 K/uL (4.8-10.8)
[2017-01-11] MEDS: IPRATROPIUM BROM 0.5 MG/2.5 ML VIAL.NEB (ATROVENT) INH SCH ×4 (07:37→20:12)
[2017-01-11] MEDS: ACETYLCYSTEINE 20% 4 ML VIAL (RT) INH SCH (07:37)
--- NOTE | 2017-01-11 08:30 | NUR ---
OPENING NOTE RECEIVED REPORT FROM DAY SHIFT NURSE, JULIO. PATIENT RESTING COMFORTABLY, PATIENT COMPLAINS OF 8/10 PAIN, HEADACHE. PATIENT WAS GIVEN ICE PACK FOR COMFORT. PATIENTS BED IN LOWEST POSITION, FAMILY AT BEDSIDE, CALL LIGHT WITHIN REACH. WILL CONTINUE TO MONITOR PATIENT FOR CHANGES IN STATUS.
[2017-01-11] MEDS: cefTRIAXone 1 GM in D5W 50 ML IV SCH (09:32)
[2017-01-11] MEDS: NICOTINE 14 MG/24 HR PATCH.TD24 TD SCH (09:32)
[2017-01-11] MEDS: ASPIRIN 81 MG TAB.CHEW PO SCH (09:32)
[2017-01-11] MEDS: PREDNISONE 20 MG TABLET PO SCH ×2 (09:32→20:54)
[2017-01-11] MEDS: guaiFENesin ER 600 MG TAB PO SCH ×2 (09:32→20:54)
[2017-01-11 11:20] VITALS: BP 138/70; PULSE 85; RESP 18; TEMP 97.1; O2SAT 95
--- NOTE | 2017-01-11 11:41 | NUR ---
CYBER ENGINEER FOLLOW UP NOTE: MILITARY SCIENCE TEACHER met with pt at bedside to follow up regarding pt's plan for discharge. Pt was tearful stating that her head is hurting and she is not sure where she is going to go upon discharge. MILITARY SCIENCE TEACHER provided emotional support. Pt reports that she was staying with a friend, but her friend is sick and she is no longer able to stay there. Pt denies having any other family or friends that she can stay with. Pt states that she had called many of the [facility] resources that were provided to her earlier in the week, but she was unable to identify any possible housing options. MILITARY SCIENCE TEACHER provided pt with the information for [facility] ([address] [place] [address]/ phone- [phone]). MILITARY SCIENCE TEACHER informed pt that at 5:00pm she can get in line for a bed nightly. MILITARY SCIENCE TEACHER also provided pt with [facility] and mental health resources. Pt did not express any other needs or concerns at this time. MILITARY SCIENCE TEACHER encouraged pt to contact Ldr Rn if any additional needs arise. MILITARY SCIENCE TEACHER placed Homeless Waiver in pt's chart to be completed upon discharge. MILITARY SCIENCE TEACHER spoke with pt's Nurse, Sondra, and Charge Nurse, Lyubov. MILITARY SCIENCE TEACHER provided update regarding conversation with pt and potential discharge needs if [facility]. Ldr Rn will continue to remain available and follow up as needed.
--- NOTE | 2017-01-11 12:27 | NUR ---
1000 NOTE PATIENT RESTING COMFORTABLY, PATIENT COMPLAINS OF 8/10 PAIN, HEADACHE. PATIENT WAS GIVEN ICE PACK FOR COMFORT. PATIENTS BED IN LOWEST POSITION, FAMILY AT BEDSIDE, CALL LIGHT WITHIN REACH. WILL CONTINUE TO MONITOR PATIENT FOR CHANGES IN STATUS.
--- NOTE | 2017-01-11 15:08 | NUR ---
1400 NOTE PATIENT RESTING COMFORTABLY, PATIENT COMPLAINS OF 7/10 PAIN, HEADACHE. PATIENT WAS GIVEN ICE PACK FOR COMFORT. PATIENT RECEIVED PO MORPHINE FOR PATIENT PAIN RELIEF. PATIENTS BED IN LOWEST POSITION, CALL LIGHT WITHIN REACH. WILL CONTINUE TO MONITOR PATIENT FOR CHANGES IN STATUS.
--- NOTE | 2017-01-11 16:05 | NUR ---
1600 NOTE PATIENT RESTING COMFORTABLY, PATIENT COMPLAINS OF 3/10 PAIN, HEADACHE. TOLERABLE PER PATIENT, AFTER MEDICATION GIVEN. PATIENT WAS GIVEN ICE PACK FOR COMFORT. PATIENTS BED IN LOWEST POSITION, CALL LIGHT WITHIN REACH. WILL CONTINUE TO MONITOR PATIENT FOR CHANGES IN STATUS.
[2017-01-11 16:09] VITALS: BP 158/89; PULSE 82; RESP 20; TEMP 97.6; O2SAT 96
--- NOTE | 2017-01-11 16:25 | NUR ---
DISCHARGE PLANNING DC order to arrange nebulizer with medications. Faxed contracted [facility] [email or web address] [phone]. Will follow up. Addendum: 01/11/17 at 1705 by Nubia Riley DP Spoke with Nisha collins#[phone] will be forwarded to [facility] [email or web address]. Called [facility] [email or web address] spoke with Dinesh in intake dept who stated order has not been received. Advised DCP to call back at 5:30pm.
--- NOTE | 2017-01-11 18:58 | NUR ---
CLOSING NOTE WAITING TO GIVE REPORT TO ELECTRICAL APPLIANCE MECHANIC NURSE. PATIENT RESTING COMFORTABLY. PATIENT PATIENT HAS NO NOTABLE SIGNS OF DISTRESS AT THIS TIME. PATIENTS BED IN LOWEST POSITION, CALL LIGHT WITHIN REACH, AND BED ALARM IS ON. WILL CONTINUE TO MONITOR PATIENT FOR CHANGES IN STATUS.
--- NOTE | 2017-01-11 19:03 | NUR ---
CLOSING NOTE PATIENT RESTING COMFORTABLY AT THIS TIME. PATIENT HAS A FRIEND AT THE BEDSIDE. COMPLAINTS OF PAIN AT 6/10. PATIENT HAS NO NOTABLE SIGNS OF DISTRESS. PATIENTS BED IS IN LOWEST POSITION, CALL LIGHT WITHIN REACH, AND BED ALARM IS ON. WILL CONTINUE TO MONITOR FOR CHANGES IN STATUS.
[2017-01-11 20:25] VITALS: BP 163/95; PULSE 83; RESP 18; TEMP 98.6; O2SAT 98
--- NOTE | 2017-01-11 20:28 | NUR ---
Opening Note Report received from Geno RCOK. Patient is in stable condition. Currently is outside with her friend. She is ambulatory and her gait is steady. IV is on the LAC currently saline locked. Will continue to monitor.
[2017-01-11] MEDS: CITALOPRAM HYDROBROMIDE 20 MG TABLET PO SCH (20:54)
--- NOTE | 2017-01-11 22:00 | NUR ---
Rounds Patient is currently resting in bed. Call light is within reach. Instructed patient to use it whenever in need of assistance. Bed is in low position. IV is on the LAC, 22g, currently saline locked.
[2017-01-12] VITALS (7 sets, daily range): BP systolic 126–173; BP diastolic 74–87; PULSE 64–100; RESP 16–20; TEMP 96.7–98.6; O2SAT 94–97
--- NOTE | 2017-01-12 00:01 | NUR ---
Rounds Patient is currently sleeping in bed. Call light is within reach.
--- NOTE | 2017-01-12 02:15 | NUR ---
Rounds Patient is currently sleeping in bed. Call light is within reach.
[2017-01-12] MEDS: MORPHINE SULFATE 30 MG Immediate Release TABLET PO PRN ×4 (02:53→20:27)
--- NOTE | 2017-01-12 04:24 | NUR ---
Rounds Patient is in stable condition. No signs of distress noted. Call light is within reach.
--- NOTE | 2017-01-12 06:50 | NUR ---
Closing Note Patient is currently resting in bed. Medicated her with Morphine IR 15mg PO for 8/10 headache. Will reassess. IV is on the RAC, 22g, currently saline locked. Call light is within reach. Bed is in low position. Will give report to the oncoming nurse.
[2017-01-12] MEDS: IPRATROPIUM BROM 0.5 MG/2.5 ML VIAL.NEB (ATROVENT) INH SCH ×3 (07:25→18:00)
[2017-01-12] MEDS: ACETYLCYSTEINE 20% 4 ML VIAL (RT) INH SCH ×2 (07:25→21:00)
[2017-01-12] MEDS: LevALBUTEROL HCL 1.25 MG/0.5 ML *CONC.* VIAL.NEB (XOPENEX CONC.) INH SCH ×3 (07:25→19:00)
--- NOTE | 2017-01-12 08:00 | NUR ---
OPENING NOTES REPORT RECEIVED AT BEDSIDE. PT IS COMPLAINING OF SEVERE PAIN AND ASKING FOR HER PAIN MEDICATION RACHELL. REPORTING NURSE WARNED THAT HER IV SITE IS FRAGILE AND TO BE EXTRA CAREFUL WHEN FLUSHING, HER VEINS ARE DELICATE.
[2017-01-12] MEDS: MORPHINE 2 MG/ML INJ. SYRINGE IVP PRN ×2 (08:54→17:34)
[2017-01-12] MEDS: guaiFENesin ER 600 MG TAB PO SCH ×2 (09:03→20:26)
[2017-01-12] MEDS: ASPIRIN 81 MG TAB.CHEW PO SCH (09:04)
[2017-01-12] MEDS: PREDNISONE 20 MG TABLET PO SCH ×2 (09:04→20:26)
[2017-01-12] MEDS: NICOTINE 14 MG/24 HR PATCH.TD24 TD SCH (09:04)
--- NOTE | 2017-01-12 09:45 | NUR ---
ROUNDS/NEW IV SITE IV SITE INFILTRATED. SHWETA LESLIE AND MARIALUISA PLACED A 22 GAUGE IV IN HER RIGHT HAND. IV FLUSHES WELL, DRESSING DRY AND INTACT.
[2017-01-12] MEDS: cefTRIAXone 1 GM in D5W 50 ML IV SCH (10:08)
--- NOTE | 2017-01-12 11:53 | NUR ---
ROUNDS PT IS IN BED, TALKING ON HER CELLPHONE. SHE STATED SHE IS COMFORTABLE AND PAIN-FREE
--- NOTE | 2017-01-12 13:33 | NUR ---
1300 INHALER MED DELAYED PHARMACY HAS YET TO PROVIDE IT: i WILL FOLLOW UP
--- NOTE | 2017-01-12 14:33 | NUR ---
Patient ambulating in the hallway. Refuse walker and states she is steady on her own. Patient wearing own non skid flip flops .
[2017-01-12] MEDS ORDERED: BISACODYL 5 MG TABLET.DR (DULCOLAX) PO ONE (15:30)
[2017-01-12] MEDS ORDERED: MILK OF MAGNESIA 30 ML UDC PO ONE (15:30)
--- NOTE | 2017-01-12 15:58 | NUR ---
CM DC PLANNING: SPOKE WITH JAMES FROM [facility] THIS A.M.; INITIALLY, SHE WAS STATING SHE WOULD NOT BE ABLE TO GET NEBULIZER TODAY BECAUSE [facility] IS NOT OPEN ON THE WEEKENDS TO PROVIDE AUTHORIZATIONS FOR THE DME WHICH WAS NEEDED BEFORE THEY COULD DELIVER TO HOSPITAL FOR DISCHARGE. THIS CM CONTACTED [facility]; CONFIRMED NOT ABLE TO OBTAIN AUTH DEPARTMENT CLOSED ON WEEKENDS; [facility] WAS CONTACTED AND INFORMED THAT [facility] WOULD PROVIDE THE AUTH FOR DME. DC PLANNING NOTES WERE NOT AVAILABLE TO THIS CM AT TIME OF CONTACT WITH JAMES INITIALLY. PER JAMES, [facility] WOULD NOT BE ABLE TO PROVIDE THE MEDICATION FOR THE NEBULIZER. CALLED BACK AND SPOKE WITH JAMES AT [facility] AND WAS TOLD THEY WOULD DELIVER NEBULIZER TO HOSPITAL TODAY AFTER BEING PROVIDED WITH THE AUTH #: [id number] OBTAINED FROM [facility] ON 01/11/17. RN/MARIALUISA NOTIFIED TO BE LOOKING FOR DELIVERY OF NEBULIZER. PER RN, SHE WOULD HAVE TO OBTAIN DC ORDER FOR Pt, BUT STATED THAT Pt WAS NOT AWARE THAT SHE WOULD NOT BE GOING BACK TO HER FRIEND'S HOME AT DC, BUT WOULD NEED TO GO TO A [facility]. DISCUSSED WEEKDAY DC PLAN WITH CM DIR/WAYNE; Pt CAN LIKELY DC TO [facility]ENT[facility] TOMORROW IF MEDICALLY STABLE; AND, RECOMMENDED THAT CM AND NURSING REVIEW SW NOTES AND CONSULT PER DR. VELAZQUEZ; ASCERTAIN WHERE Pt CAN GET Rx FILLED FOR NEBULIZER MEDS; AND OFFER TAXI VOUCHER TO Pt FOR ADMISSION TO [facility]ENT[facility].
--- NOTE | 2017-01-12 16:03 | NUR ---
Nutrition F/U Admitting Diagnosis COPD exacerbation, bronchitis Reviewed Pertinent Medical/Surgical Hx Patient Primary RN Medical Record Medical History Comment: COPD, HTN per MD notes Sx Hx: Hernia repair, appendectomy, hysterectomy Subjective Information Pt seen resting in bed at time of RD visit. Pt reported that she has been eating fine, w/ no difficulty chewing/swallowing. Pt stated that her appetite has been improving, and that she is interested in snacks TD. RD to implement orders via [employer], and notify [facility] staff. Pt stated she feels constipated, and would like some herbal tea; RD notified [facility] staff to provide. Per EMR, PO Intakes: 96% average x13 meals. I/O: 1800/0 (+1800 ml) per 12 hours. Current Diet Order/Nutrition Support Mechanical soft x5 days Patient/Significant Other Able To Verbalize Education Provided Not Indicated Pertinent Medications prednisone Pertinent Labs WBC 14.6 H (01/11/17), BG 111 H Height (Feet) 5 feet Height (Inches) 1.00 inches Weight (Pounds) 96 pounds (admission) BEDSCALE WT: 97 lb, 44 kg (01/12/17) -- RD calibrated pt's bedscale to 0 prior to weighing pt Weight (Calculated Kilograms) 43.792440 kilograms Patient Weight 43.545 kg Body Mass Index 18.14 kg/m2 Usual Weight 96 lbs %UBW 100 %IBW 91 Mitchell/Adjusted Body Weight IBW: 105 lb/48 kg Recent Weight Change No Weight Status Appropriate Gastrointestinal Symptoms Constipation -- pt reported no BM since right before/after admission; RN stated she would F/U w/ orders for stool softener Difficulty With: Chewing Food Allergies No Usual Diet At Home Regular, unrestricted; takes MVI Skin Integrity Comment: Arley scale: 21. No skin issues noted. Current % PO Fair (50-74%) Estimated Energy Expenditure (kcals/day) 3320-0014 kcal/day (25-30 kcal/kg IBW for maintenance) Estimated Protein Required (g/day) 58-72 gm/day (1.2-1.5 gm/kg IBW for COPD) Estimated Fluid Required (l/day) 1.2-1.4 L/day (25-30 ml/kg IBW for maintenance) Problem/Etiology/Signs/Symptoms Constipation related to unknown causes as evidenced by no bowel movements for more than 8 days. *ongoing Expected Outcomes/Goals 1. Monitor PO intakes with goal of meeting at least 75% of estimated needs with acceptable tolerance 2. Labs trending within normal limits 3. Maintain weight status 4. Maintain skin integrity 5. Improved GI function, normal bowel movements Dietitian Recommendations * Recommend continuing mechanical soft diet * Consider stool softener Follow Up Mod Risk: F/U in 3-5 days Addendum: 01/12/17 at [address] Pt is likely meeting optimal nutritional needs. Pt declined nutrition education. Follow Up Low Risk: F/U in 7 days
--- NOTE | 2017-01-12 17:27 | NUR ---
ROUNDS PT COMPLAINS OF INCREASED ABD PAIN SINCE TAKING THE STOOL SOFTENER. AUSCULTATION: ACTIVE IN URQ AND LRQ, HYPERACTIVE IN ULQ AND LLQ. ABD DISTENDED BILATERALLY IN LOWER QUADRANTS WITH REBOUND PAIN PRESENT IN RLQ. WILL REVIEW PRN ANALGESIC SCHEDULE AND CONTINUE TO FOLLOW UP
--- NOTE | 2017-01-12 18:30 | NUR ---
CLOSING NOTE PT IS IN BED, RESTLESS. HER ABD IS DISTENDED AND PAINFUL, YET SHE SAID SHE DOES NOT WANT AN ENEMA. I EDUCATED HER ON HOW HER CONSTIPATION MAY EXACERBATE HER PAIN, ENSURED SHE IS CLEAN.
[2017-01-12] MEDS ORDERED: NA PHOS,M-B/NA PHOS,DI-BA 118 ML (FLEET ENEMA) RC ONE (19:15)
--- NOTE | 2017-01-12 19:29 | NUR ---
Opening Note Report received from Antonieta ROCK. Patient is in stable condition currently resting in bed. IV is on the right hand 22g currently at tko. Call light is within reach. Bed is in low position. Will continue to monitor.
[2017-01-12] MEDS: CITALOPRAM HYDROBROMIDE 20 MG TABLET PO SCH (20:26)
--- NOTE | 2017-01-12 22:00 | NUR ---
Rounds Patient is resting in bed. Call light is within reach.
--- NOTE | 2017-01-13 00:33 | NUR ---
Rounds Patient is currently resting in bed. Call light is within reach.
[2017-01-13 00:56] VITALS: BP 151/83; PULSE 76; RESP 12; TEMP 97.6; O2SAT 95
[2017-01-13] MEDS: MORPHINE 2 MG/ML INJ. SYRINGE IVP PRN ×2 (00:59→13:16)
--- NOTE | 2017-01-13 02:15 | NUR ---
Rounds Patient is currently sleeping in bed. Call light is within reach.
[2017-01-13] MEDS: IPRATROPIUM BROM 0.5 MG/2.5 ML VIAL.NEB (ATROVENT) INH SCH ×3 (02:37→13:28)
[2017-01-13] MEDS: LevALBUTEROL HCL 1.25 MG/0.5 ML *CONC.* VIAL.NEB (XOPENEX CONC.) INH SCH ×3 (02:37→13:28)
[2017-01-13 04:16] VITALS: BP 157/75; PULSE 61; RESP 15; TEMP 99.4; O2SAT 91
--- NOTE | 2017-01-13 04:25 | NUR ---
Rounds Patient is resting in bed. No sings of distress noted. Call light is within reach.
[2017-01-13] MEDS: MORPHINE SULFATE 30 MG Immediate Release TABLET PO PRN (05:05)
--- NOTE | 2017-01-13 06:20 | NUR ---
Closing Note Patient is in stable condition. Currently resting in bed. Call light is within reach. Instructed patient to use it whenever in need of assistance. IV is on the RFA 22g running at [facility]. Patient is still refusing an enema. Educated that her constipation may be a side effect of the pain medication she is requesting. Will give report to the oncoming nurse.
--- NOTE | 2017-01-13 07:45 | NUR ---
OPENING NOTES PT SITTING UP IN BED, EATING BREAKFAST. VS STABLE BUT SHE IS COMPLAINING OF PAIN 02/23. PLAN TODAY IS TO GET HER TO AMBULATE AND ADMIN ENEMA IF CONSTIPATION CONTINUES.
[2017-01-13 08:00] VITALS: BP 167/88; PULSE 62; RESP 15; TEMP 98.3; O2SAT 98
[2017-01-13] MEDS: NICOTINE 14 MG/24 HR PATCH.TD24 TD SCH (09:27)
[2017-01-13] MEDS: cefTRIAXone 1 GM in D5W 50 ML IV SCH (09:28)
[2017-01-13] MEDS: guaiFENesin ER 600 MG TAB PO SCH (09:28)
[2017-01-13] MEDS: PREDNISONE 20 MG TABLET PO SCH (09:28)
[2017-01-13] MEDS: ASPIRIN 81 MG TAB.CHEW PO SCH (09:28)
[2017-01-13] MEDS: ACETYLCYSTEINE 20% 4 ML VIAL (RT) INH SCH (09:45)
--- NOTE | 2017-01-13 10:14 | NUR ---
ROUNDS/ENEMA PT STILL IN PAIN AND CONSTIPATED, SO FLEET ENEMA ADMINISTERED. PT TOLERATED WELL, BEDSIDE COMMODE PROVIDED.
[2017-01-13] MEDS ORDERED: ZOLPIDEM TARTRATE 5 MG TABLET PO PRN (11:00)
[2017-01-13] MEDS ORDERED: LISINOPRIL 20 MG TABLET PO ONE (11:00)
[2017-01-13] MEDS ORDERED: MORPHINE SULFATE 30 MG Immediate Release TABLET PO ONE (11:15)
--- NOTE | 2017-01-13 11:20 | NUR ---
MED WASTE WHILE DIVIDING THE 30 MG OF PRN PO MORPHINE, I DROPPED IT ON THE FLOOR. I CALLED PHARMACY AND THEY ENTERED A ONE-TIME REPLACEMENT DOSE. HYU CHAVEZ WITNESSED ME WAISTING THE FIRST PILL. SECOND PILL SUCCESSFULLY SPLIT AND 15MG ADMINISTERED ORDERED
--- NOTE | 2017-01-13 11:35 | NUR ---
DR VU AT BEDSIDE, NO NEW ORDERS
[2017-01-13] MEDS ORDERED: FLUTICASONE/VILANTEROL 1 EACH BLST.W.DEV INH SCH (11:45)
--- NOTE | 2017-01-13 12:02 | NUR ---
ROUNDS PT SITTING UP IN BED, TALKING ON HER CELLPHONE. SHE DOES NOT APPEAR TO BE IN DISCOMFORT
--- NOTE | 2017-01-13 12:20 | NUR ---
DC PLANNING: S/W THE PATIENT, INFORMED HER THAT THE MD MEDICALLY CLEARED HER FOR DISCHARGE,GAVE HER THE LIST OF RESOURCES SHE NEEDS AND OFFERED HER TAXI VOUCHER TO GO TO THE [facility] OR TO HER FRIEND'S HOUSE. SHE WILL CALL HER FRIEND FIRST IF SHE CAN BE CORPORATE DEVELOPMENT MANAGER IF NOT SHE WILL ACCEPT THE VOUCHER. USES [facility] [place] TEL# [phone]. MARILYN ROCK AWARE.
[2017-01-13 12:25] VITALS: BP 151/72; PULSE 82; RESP 16; TEMP 98.5; O2SAT 95
[2017-01-13 12:36] VITALS: BP 142/86; PULSE 76; RESP 18; TEMP 98; O2SAT 97
[2017-01-13] MEDS ORDERED: IPRA3AMP9 NEB (12:48)
--- NOTE | 2017-01-13 13:29 | NUR ---
ARRANGED A YELLOW CAB TRANSPORT TO TAKE PT TO HER FRIENDS HOUSE AT [address] [place] [address] [address], [place] [address]. SPOKE TO CAROLANN. OFFICE DIRECTOR TIME IS 1430 @ [facility]
--- NOTE | 2017-01-13 14:48 | NUR ---
D/C Patient Patient given medication reconciliation form and D/C instructions. Exit Care provided. Patient verbalized understanding. MD discussed with patient the results and treatment provided. Ambulatory with steady gait for discharge to home. Patient in stable condition, ID band removed. IV catheter removed, intact and dressing applied, no active bleeding. Rx of albuterol given. Patient educated on COPD and smoking cessasion. All belongings, including nebulizer, sent with patient.
[2017-01-13] MEDS ORDERED: ACETYLCYSTEINE 20% 4 ML VIAL (RT) INH SCH (15:00)
[2017-01-14] MEDS ORDERED: LISINOPRIL 20 MG TABLET PO SCH (09:00)
--- NOTE | 2017-01-21 12:29 | NUR ---
Discharge Follow Up Phone Calls: Mouse Breeder called and attempted to speak with pt ([phone]) on 01/17/17, 01/18/17, and today. At each attempt, pt's line was busy. Mouse Breeder unable to follow up with pt at this time.
== END 2017-01-13 15:30 | disposition home or self-care (01) | DRG 140 ==
LOC: SED 10:42 → STU 13:25 → SMU 01-05 12:56
PROVIDERS: ADMIT Internal Medicine Hospice and Palliative Medicine; ATTEND Internal Medicine Hospice and Palliative Medicine
DX: J44.1 Chronic obstructive pulmonary disease with (acute) exacerbation (principal); F32.2 Major depressive disorder, single episode, severe without psychotic features; F11.20 Opioid dependence, uncomplicated; I10 Essential (primary) hypertension; F17.210 Nicotine dependence, cigarettes, uncomplicated; F41.1 Generalized anxiety disorder; R07.81 Pleurodynia; J40 Bronchitis, not specified as acute or chronic; F12.90 Cannabis use, unspecified, uncomplicated; F31.9 Bipolar disorder, unspecified; F43.10 Post-traumatic stress disorder, unspecified; G43.909 Migraine, unspecified, not intractable, without status migrainosus; Z90.49 Acquired absence of other specified parts of digestive tract; Z90.710 Acquired absence of both cervix and uterus; Z86.73 Personal history of transient ischemic attack (TIA), and cerebral infarction without residual deficits
CPT/HCPCS: 36415; 70450-TC; 70551; 71010; 71275; 76700-TC; 80048; 80053; 83605; 83880; 84484; 85025; 87040-TC; 93005; 94640; 94760; 96365; 96375; 96376; 99285; J0456; J0696; J1170; J1200; J1885; J2270; J2274; J2405; J2930; J7040; J7050; J7060; J7512; Q9967

== ENCOUNTER 2017-01-14 00:53 | Emergency (ER) | payer MEDICAID ==
[2017-01-07 13:46] VITALS: Ht 152.4 cm; Wt 43.5 kg
[~2017-01-14] VITALS: Ht 152.4 cm; Wt 43.5 kg
[~2017-01-14 00:53] MED LIST: IPRA3AMP9 NEB; LEVO500T20 PO
--- NOTE | 2017-01-14 01:05 | NUR ---
Placed in room 02 . Placed on operational assistant, blood pressure machine and pulse oximeter. To gown for exam. Side rails up. Report given to SHWETA George.
[2017-01-14 01:15] VITALS: BP 134/87; PULSE 58; RESP 17; TEMP 98.1; O2SAT 98
--- NOTE | 2017-01-14 01:15 | NUR ---
pt in bed 2 with c/o abdominal pain, Dr Whelan aware.
--- NOTE | 2017-01-14 01:18 | NUR ---
ER at bedside examining patient.
[2017-01-14] MEDS ORDERED: ONDANSETRON HCL 4 MG/2 ML VIAL IVP ONE (01:30)
[2017-01-14] MEDS ORDERED: KETOROLAC TROMETHAMINE 30 MG VIAL IVP ONE (01:30)
[2017-01-14 01:53] LABS: HEMATOCRIT 36.5 % (36-48); HEMOGLOBIN 12.5 g/dL (12.0-16.0); MEAN CORPUSCULAR HEMOGLOBIN 32 pg (27-31); MEAN CORPUSCULAR HGB CONC 34 % (32-36); MEAN CORPUSCULAR VOLUME 94 fL (79.0-98.0); PLATELET COUNT (AUTO) 336 K/uL (130-430); RED BLOOD CELL COUNT(AUTO) 3.88 MIL/uL (4.2-6.2); RED CELL DISTRIBUTION WIDTH 13.3 % (9.0-15.0); WHITE BLOOD COUNT (AUTO) 24.9 K/uL (4.8-10.8)
--- NOTE | 2017-01-14 02:00 | NUR ---
Patient transported to radiology via gurney, accompanied by junior linux administrator.
[2017-01-14 02:07] LABS: CALCIUM 8.3 mg/dL (8.4-11.0); CREATININE 1.15 mg/dL (0.55-1.30); POTASSIUM 4.1 mmol/L (3.5-5.1)
[2017-01-14 02:11] LABS: ALBUMIN 3.4 g/dL (3.4-4.8); TOTAL BILIRUBIN 0.4 mg/dL (0.0-1.0); TOTAL PROTEIN, SERUM 6.7 g/dL (6.4-8.3)
[2017-01-14 02:21] LABS: BAND % (MANUAL) 1 % (0-6); BASOPHILS % (MANUAL) 0 % (0-2); EOSINOPHILS % (MANUAL) 0 % (0-7); LYMPHOCYTES % (MANUAL) 21 % (20-46); MONOCYTES % (MANUAL) 7 % (0-11)
--- NOTE | 2017-01-14 02:30 | NUR ---
# 24 gauge angiocath placed to right wrist. Use of asceptic technique. Opsite placed over site. Blood return noted. Blood for lab drawn from site. Flushed with 10 cc of normal saline. No evidence of infiltration noted. Patient tolerated well.
--- NOTE | 2017-01-14 03:00 | NUR ---
Urine specimen collected sent to lab. Results to be given to PATTI WILLIAMSON.
[2017-01-14 03:18] LABS: BILIRUBIN,URINE NEGATIVE (NEGATIVE); BLOOD, URINE NEGATIVE (NEGATIVE); CLARITY/URINE CLEAR (CLEAR); COLOR,URINE YELLOW (YELLOW); GLUCOSE,URINE NEGATIVE (NEGATIVE); KETONES,URINE NEGATIVE (NEGATIVE); LEUKOCYTE ESTERASE ,URINE NEGATIVE (NEGATIVE); NITRITE, URINE NEGATIVE (NEGATIVE); PROTEIN URINE NEGATIVE (NEGATIVE); UROBILINOGEN,URINE 0.2 (0.2-1.0)
[2017-01-14] MEDS ORDERED: MORPHINE 4 MG/ML INJ. SYRINGE IVP ONE (03:45)
--- NOTE | 2017-01-14 04:11 | NUR ---
medication given as per MD orders. tolerated well.
[2017-01-14 04:31] VITALS: BP 144/63; PULSE 70; RESP 17; TEMP 98.1; O2SAT 98
== END 2017-01-14 04:31 | disposition home or self-care (01) ==
LOC: SED 00:53
DX: K59.00 Constipation, unspecified (principal); J44.9 Chronic obstructive pulmonary disease, unspecified; I10 Essential (primary) hypertension; Z88.5 Allergy status to narcotic agent
CPT/HCPCS: 36415; 74176; 80053; 81003; 83690; 85007; 85027; 96374; 96375; 99285; J1885; J2270; J2405

== ENCOUNTER 2017-11-25 15:27 | Emergency (ER) | payer OTHER ==
[~2017-11-25] VITALS: Ht 152.4 cm; Wt 43.5 kg
[~2017-11-25 15:27] MED LIST changes: +DOCU-144 PO; +MORP15TA60 PO
[2017-11-25 15:30] VITALS: BP_SYST 162
[2017-11-25 16:12] VITALS: BP_SYST 158
== END 2017-11-25 16:14 | disposition home or self-care (01) ==
LOC: SED 15:27
DX: L25.9 Unspecified contact dermatitis, unspecified cause (principal); I10 Essential (primary) hypertension; Z90.49 Acquired absence of other specified parts of digestive tract; Z88.5 Allergy status to narcotic agent
CPT/HCPCS: 99282

== ENCOUNTER 2018-07-27 19:22 | Emergency (ER) | payer MEDICAID, OTHER ==
[~2018-07-27] VITALS: Ht 152.4 cm; Wt 43.5 kg
[2018-07-27 19:24] VITALS: BP_SYST 194
[2018-07-27] MEDS ORDERED: LIDOCAINE 1% 10 MG/ML, 20 ML MDV INJ ONE (20:00)
[2018-07-27] MEDS ORDERED: DIPH-TET-PERTUS Vaccine 0.5 ML VIAL (ADACEL) I.M. ONE (20:00)
[2018-07-27] MEDS ORDERED: SODIUM BICARBONATE 8.4% VIAL 50 MEQ/50 ML VIAL INJ ONE (20:00)
[2018-07-27] MEDS ORDERED: IBUPROFEN 800 MG TABLET PO ONE (20:00)
[2018-07-27] MEDS ORDERED: DIPHENHYDRAMINE INJ 50 MG/ML VIAL ONE (21:07)
[2018-07-27] MEDS ORDERED: MORPHINE SULFATE 10 MG/ML VIAL ONE (21:07)
[2018-07-27 22:40] VITALS: BP_SYST 148
[2018-07-28] MEDS ORDERED: MORPHINE SULFATE 10 MG/ML VIAL IM ONE (14:00)
[2018-07-28] MEDS ORDERED: DIPHENHYDRAMINE INJ 50 MG/ML VIAL IM ONE (14:00)
== END 2018-07-27 22:40 | disposition home or self-care (01) ==
LOC: SED 19:22
DX: L03.012 Cellulitis of left finger (principal); I10 Essential (primary) hypertension; F17.210 Nicotine dependence, cigarettes, uncomplicated; J44.9 Chronic obstructive pulmonary disease, unspecified; Z71.6 Tobacco abuse counseling; Z90.49 Acquired absence of other specified parts of digestive tract; Z90.89 Acquired absence of other organs; Z90.710 Acquired absence of both cervix and uterus; Z88.5 Allergy status to narcotic agent; Z79.899 Other long term (current) drug therapy
CPT/HCPCS: 26010; 90471; 90715; 99283; J1200; J2001; J2270